=== PATIENT | male | born 2000 ===

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

== ENCOUNTER 2019-04-13 08:49 | Emergency (ER) | payer SELFPAY ==
[2019-04-13 08:56] VITALS: BP 126/79; PULSE 86; RESP 18; TEMP 98.4; O2SAT 96
--- NOTE | 2019-04-13 09:15 | C.PDOC ---
History Of Present Illness Patient is a 19 year old male, with no medical problems, who presents to the ED c/o a few day history of nose bleed, frontal headache, and nasal congestion. Patient has been taking Theraflu for his symptoms, without improvement. He denies any fever, chills, vomiting, CP, or SOB. Time Seen by Provider: 04/13/19 09:05 Chief Complaint (Nursing): Headache History Per: Patient History/Exam Limitations: no limitations Onset/Duration Of Symptoms: Days Current Symptoms Are (Timing): Still Present Associated Symptoms: denies: Nausea, Vomiting Recent travel outside of the [place]: No Additional History Per: Patient Past Medical History Reviewed: Historical Data, Nursing Documentation, Vital Signs Vital Signs: Last Vital Signs Temp 98.4 F 04/13/19 08:51 Pulse 86 04/13/19 08:51 Resp 18 04/13/19 08:51 BP 126/79 04/13/19 08:51 Pulse Ox 96 04/13/19 08:51 Primary Care Provider: FAMILY PROVIDER,NO - Medical History PMH: Denies: Chronic Kidney Disease Surgical History: No Surg Hx Family History: States: Unknown Family Hx - Social History Hx Tobacco Use: Yes Hx Alcohol Use: No Hx Substance Use: No - Immunization History Hx Tetanus Toxoid Vaccination: Yes Hx Influenza Vaccination: Yes Hx Pneumococcal Vaccination: Yes Review Of Systems Except As Marked, All Systems Reviewed And Found Negative. Constitutional: Negative for: Fever, Chills ENT: Positive for: Nose Discharge (nose bleed ), Nose Congestion Cardiovascular: Negative for: Chest Pain Respiratory: Negative for: Shortness of Breath Neurological: Positive for: Headache (frontal) Physical Exam - Physical Exam Appears: Well, Non-toxic, No Acute Distress Head: Atraumatic, Normacephalic, No Tenderness (frontal) Eye(s): bilateral: PERRL, EOMI, Other (Conjunctiva clear) Nose: Other (tubinates swollen right greater than left ) Oral Mucosa: Moist Throat: Normal Neck: Normal ROM, Supple Chest: Symmetrical Cardiovascular: Rhythm Regular, No Murmur Respiratory: No Rales, No Rhonchi, No Wheezing Gastrointestinal/Abdominal: Soft, No Tenderness, No Distention, No Guarding, No Rebound Neurological/Psych: Oriented x3 ED Course And Treatment O2 Sat by Pulse Oximetry: 96 (on RA ) Pulse Ox Interpretation: Normal Disposition Counseled Patient/Family Regarding: Diagnosis, Need For Followup - Disposition Referrals: [facility] [Outside] [facility] [Outside] Disposition: HOME/ ROUTINE Disposition Time: 09:14 Condition: GOOD Instructions: Viral Upper Respiratory Infection, Adult (DC), Nosebleeds (DC) Forms: Gen Discharge Inst Libyan, [employer] (Libyan) Print Language: POLISH - POA Present On Arrival: None - Clinical Impression Clinical Impression: URI (upper respiratory infection), Epistaxis - Scribe Statement The provider has reviewed the documentation as recorded by the Shreya Delgado All medical record entries made by the Shreya were at my direction and personally dictated by me. I have reviewed the chart and agree that the record accurately reflects my personal performance of the history, physical exam, medical decision making, and the department course for this patient. I have also personally directed, reviewed, and agree with the discharge instructions and disposition.
== END 2019-04-13 09:40 | disposition home or self-care (01) ==
LOC: C.ER 08:49
DX: J06.9 Acute upper respiratory infection, unspecified (principal); R04.0 Epistaxis